=== PATIENT | female | born 1950 | race Caucasian/White ===

== ENCOUNTER 2020-12-27 19:14 | Emergency (ER) | payer OTHER, MEDICARE ==
[2020-12-27] MEDS ORDERED: Ketorolac 30 MG/ML SDV IVPUSH ONE (19:34)
[2020-12-27] MEDS ORDERED: Diphtheria,Pertussis(Acell),Tetanus Vaccine 0.5 ML Syringe IM ONE (19:44)
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
== END 2020-12-27 22:05 | disposition home or self-care (01) ==
LOC: MW.ED 19:14
DX: S09.90XA Unspecified injury of head, initial encounter (principal); S63.004A Unspecified dislocation of right wrist and hand, initial encounter; S63.501A Unspecified sprain of right wrist, initial encounter; S00.83XA Contusion of other part of head, initial encounter; S20.212A Contusion of left front wall of thorax, initial encounter; S46.002A Unspecified injury of muscle(s) and tendon(s) of the rotator cuff of left shoulder, initial encounter; R04.0 Epistaxis; Z23 Encounter for immunization; V47.5XXA Car driver injured in collision with fixed or stationary object in traffic accident, initial encounter
CPT/HCPCS: 29125; 70450; 70486; 71101; 72125; 73030; 73110; 90471; 90715; 93005; 96374; 99285; J1885; 93010

== ENCOUNTER 2024-04-05 09:34 | Emergency (ER) | payer MEDICARE, OTHER ==
[2024-04-05 09:53] LABS: BASOPHILS ABSOLUTE AUTO 0.05 K/uL (0.00-0.20); BASOPHILS PERCENT AUTO 0.7 % (0.0-1.0); EOSINOPHILS ABSOLUTE AUTO 0.17 K/uL (0.00-0.45); EOSINOPHILS PERCENT AUTO 2.4 % (0.0-6.0); HEMATOCRIT 42.7 % (37.0-47.0); HEMOGLOBIN 14.3 g/dL (12.0-16.0); IMMATURE GRAN ABSOLUTE AUTO 0.02 K/uL (0.00-0.05); IMMATURE GRAN PERCENT AUTO 0.3 % (0.0-0.4); LYMPHOCYTES ABSOLUTE AUTO 2.32 K/uL (1.00-4.80); LYMPHOCYTES PERCENT AUTO 32.5 % (24.0-44.0); MEAN CORPUSCULAR HEMOGLOBIN 30.7 pg (28.0-32.0); MEAN CORPUSCULAR HGB CONC 33.5 g/dL (32.0-36.0); MEAN CORPUSCULAR VOLUME 91.6 fL (83.0-99.0); MEAN PLATELET VOLUME 10.3 fL (9.4-12.3); MONOCYTES ABSOLUTE AUTO 0.77 K/uL (0.00-0.80); MONOCYTES PERCENT AUTO 10.8 % (0.0-8.0); NEUTROPHILS PERCENT AUTO 53.3 % (41.0-71.0); PLATELET COUNT,PLT 326 K/uL (150-400); RED BLOOD CELL COUNT 4.66 M/uL (4.10-5.30); WHITE BLOOD CELL COUNT,WBC 7.13 K/uL (3.9-11.3)
[2024-04-05] MEDS: Aspirin 81 MG Tab.Chew PO ONE (10:10)
[2024-04-05] MEDS: Sodium Chloride 0.9% 10 ML Syringe FLUSH PRN (10:11)
[2024-04-05] MEDS: Sodium Chloride 0.9% 2.5 ML Syringe FLUSH PRN (10:11)
[2024-04-05] MEDS: Ondansetron 4 MG/2 ML SDV IVPUSH ONE (10:11)
[2024-04-05 10:22] LABS: A/G RATIO 1.2 (0.9-1.6); BILIRUBIN TOTAL 0.5 mg/dL (0.2-1.0); CALCIUM 8.7 mg/dL (8.5-10.1); CARBON DIOXIDE,CO2 22.1 mmol/L (21.0-32.0); CREATININE 0.9 mg/dL (0.6-1.0); EST CRCL DRUG DOSING (CG) 39.99 mL/min; POTASSIUM,K 3.8 mmol/L (3.5-5.1); PROTEIN TOTAL,TP 7.4 g/dL (6.4-8.2)
[2024-04-05] MEDS: Famotidine 20 MG/2 ML SDV IVPUSH ONE (11:15)
[2024-04-05] MEDS: Enoxaparin 100 MG/1 ML Syringe SUBCUT STA (11:15)
== END 2024-04-05 10:44 ==
LOC: MW.ED 09:34
DX: I20.0 Unstable angina (principal)
CPT/HCPCS: 36415; 71045; 71045-26; 80053; 83690; 84484; 85025; 93010; 96372; 99285; 99291; A9270-GY; J1650; J3490